=== PATIENT | female | born 1945 | race African-American/Black ===

== ENCOUNTER 2023-07-17 12:17 | Emergency (ER) | payer OTHER, SELFPAY ==
[2023-07-17 12:29] VITALS: BP 143/80; PULSE 76; RESP 20; TEMP 36.7; O2SAT 100; BMI 26.4
[2023-07-17 14:00] VITALS: BP 150/94; PULSE 69; RESP 18; O2SAT 99
[2023-07-17] MEDS: OXYCODONE HCL/ACETAMINOPHEN 5MG/325MG 1 TAB PO (14:09)
--- NOTE | 2023-07-17 17:52 | ED.UPPEXIN1 ---
HPI - Extremity Injury (Upper) General Chief Complaint: Extremity Injury, Upper Stated Complaint: RIGHT HAND PAIN Time Seen by Provider: 07/17/23 12:40 Source: patient Mode of arrival: walk-in Limitations: no limitations History of Present Illness HPI narrative: The patient is coming to the ER 2 weeks after she had an injury to her right hand when she had her right hand fingers stuck in the garage door where she broke her middle phalanx in both second third and fourth finger The patient at that time started antibiotic she was supposed to follow-up with orthopedic as outpatient but she did not do that yet she is coming after she noted swelling in her left index finger more than usual in addition to increasing pain although she is not taking anything other than Tylenol at home The patient take Eliquis Related Data Home Medications Medication Instructions Recorded Confirmed amlodipine 5 mg tablet 5 mg PO DAILY 07/17/23 07/17/23 apixaban 5 mg tablet (Eliquis) 5 mg PO DAILY 07/17/23 07/17/23 aspirin 81 mg tablet,delayed 81 mg PO DAILY 07/17/23 07/17/23 release (Adult Low Dose Aspirin) atorvastatin 40 mg tablet 40 mg PO DAILY 07/17/23 07/17/23 cephalexin 500 mg capsule 500 mg PO BID 07/17/23 07/17/23 hydrochlorothiazide 25 mg tablet 25 mg PO DAILY 07/17/23 07/17/23 lisinopril 40 mg tablet 40 mg PO DAILY 07/17/23 07/17/23 metformin 500 mg tablet,extended 1,000 mg PO BID 07/17/23 07/17/23 release 24 hr metoprolol succinate 50 mg 50 mg PO DAILY 07/17/23 07/17/23 tablet,extended release 24 hr Previous Rx's Medication Instructions Recorded oxycodone-acetaminophen 5 mg-325 1 tab PO Q8H PRN pain #9 tabs 07/17/23 mg tablet (Percocet) Allergies Allergy/AdvReac Type Severity Reaction Status Date / Time No Known Drug Allergies Allergy Verified 07/17/23 12:29 Review of Systems ROS Status of ROS 10 or more systems reviewed and unremarkable except as noted in history and below PFSH PFSH Social History Smoking status: Never smoker Exam Narrative Exam Narrative: Nurses notes and vital signs reviewed and patient is not hypoxic. General: Well-appearing and in no apparent distress. Skin: Warm, dry, no pallor noted. No rash. Head: Normocephalic, atraumatic. Neck: Supple, non-tender. Eye: Pupils are equal, round and EOMI. No scleral icterus. Ears, Nose, Mouth, and Throat: TM are clear, no nasal mucosal hypertrophy. Oral mucosa is moist, no posterior oropharynx erythema, uvula is mid-line Cardiovascular: Regular Rate and Rhythm without murmur, gallop or rub. Respiratory: No accessory muscle use or respiratory distress. Lungs are clear to auscultation, no wheezing, rales or rhonchi Chest Wall: no tenderness Back: No midline thoracic or lumbar vertebral tenderness. No CVA tenderness Musculoskeletal: The patient index finger examination showed that the tip of the finger just distal to the distal interphalangeal joint there is ischemia with tenderness the rest of the fingers are swollen the patient have the rest of the fingers showing healing properly with no tenderness no signs of infection GI: Abdomen is soft, non-distended. Normal bowel sounds. No masses appreciated. No tenderness to palpation. No rebound, guarding, or rigidity noted. Neurological: A&O x4. No cranial nerve dysfunction observed. No truncal ataxia. Moves all extremities. Sensation intact. Psychiatric: Cooperative and interactive. Normal mood and affect. Constitutional Vital Signs, click to edit/add: Last Vital Signs Temp 98.1 F 07/17/23 12:29 Pulse 69 07/17/23 14:00 Resp 18 07/17/23 14:00 BP 150/94 H 07/17/23 14:00 Pulse Ox 99 07/17/23 14:00 Course Vital Signs Vital signs: Vital Signs Temperature 98.1 F 07/17/23 12:29 Pulse Rate 76 07/17/23 12:29 Respiratory Rate 20 07/17/23 12:29 Blood Pressure 143/80 H 07/17/23 12:29 Pulse Oximetry 100 07/17/23 12:29 Temperature 98.1 F 07/17/23 12:29 Pulse Rate 69 07/17/23 14:00 Respiratory Rate 18 07/17/23 14:00 Blood Pressure 150/94 H 07/17/23 14:00 Pulse Oximetry 99 07/17/23 14:00 MDM - Extremity Injury (Upper) MDM Narrative Medical decision making narrative: The patient will be covered with Percocet for pain management but her presentation was discussed with Dr. Wood and orthopedic service as it is concerning for possible ischemic changes The patient will follow up with the process laboratory specialist as outpatient Splint reapplied and the patient was instructed about the importance of follow-up because of the ischemic changes and the risk of losing the whole finger but right now the process has been going on for at least 2 weeks The patient is to follow up with primary care physician in next 2-3 days or to return to the emergency department should any of the signs or symptoms worsen or new symptoms develop. The patient agrees with the following Diagnosis and Treatment plan and the patient will be discharged home. Discharge Plan Discharge Chief Complaint: Extremity Injury, Upper Clinical Impression: Ischemia of finger Patient Disposition: Home, Self-Care Time of Disposition Decision: 13:55 Prescriptions / Home Meds: New oxycodone-acetaminophen [Percocet] 5-325 mg tablet 1 tab PO Q8H PRN (Reason: pain) Qty: 9 0RF No Action amlodipine 5 mg tablet 5 mg PO DAILY Eliquis 5 mg tablet 5 mg PO DAILY atorvastatin 40 mg tablet 40 mg PO DAILY cephalexin 500 mg capsule 500 mg PO BID hydrochlorothiazide 25 mg tablet 25 mg PO DAILY lisinopril 40 mg tablet 40 mg PO DAILY metformin 500 mg tablet extended release 24 hr 1,000 mg PO BID metoprolol succinate 50 mg tablet extended release 24 hr 50 mg PO DAILY aspirin [Adult Low Dose Aspirin] 81 mg tablet,delayed release (DR/EC) 81 mg PO DAILY Instructions: Crush Injury (ED) Stand Alone Forms: Portal Instructions Referrals: SURENDRA GODINEZ [Primary Care Provider] - 1 week Munir Kumar MD [Physician] - As soon as possible Discharge Date/Time: 07/17/23 14:14
== END 2023-07-17 14:14 | disposition home or self-care (01) ==
PROVIDERS: Emergency Provider Emergency Medicine; Family Provider Family Medicine; PCP Family Medicine
DX: I99.8 Other disorder of circulatory system (principal); Z79.899 Other long term (current) drug therapy; Z79.01 Long term (current) use of anticoagulants; Z79.84 Long term (current) use of oral hypoglycemic drugs
CPT/HCPCS: 99283

== ENCOUNTER 2023-07-18 09:43 | Outpatient (OUT) | payer OTHER, SELFPAY ==
--- NOTE | 2023-07-18 09:59 | XR_ITS ---
The [address] [address] Patient Name: NEIL TORIBIO MRN: [id number] date: 1945 Sex: F Assigned Patient Location: [facility] Current Patient Location: Accession/Order Number: [id number] Exam Date: 07/18/2023 10:05 Report Date: 07/19/2023 07:19 At the request of: GAGE ISSA Procedure: XR hand RT min 3V EXAM: XR hand RT min 3V HISTORY: Right Hand Pain COMPARISON: None. TECHNIQUE: Routine views of the XR hand RT min 3V FINDINGS/ XR/XR hand RT min 3V IMPRESSION: 1. Displaced first distal phalangeal fracture with irregular fracture margins and adjacent soft tissue gas for which superimposed osteomyelitis cannot be excluded. The soft tissues of the second distal phalanx appear blunted. Acro osteolysis of the third distal phalanx. Normal mineralization. 2. Atherosclerotic calcifications are present. 3. Advanced first CMC, moderate first MCP/IP and scattered moderate interphalange joint degeneration. Electronically authenticated by: SUNITHA SRINIVASAN Date: 07/19/2023 07:19
== END 2023-07-18 09:44 | disposition home or self-care (01) ==
LOC: RAD 09:44
PROVIDERS: Family Provider Family Medicine; PCP Family Medicine; Visit Provider Orthopaedic Surgery
DX: M79.641 Pain in right hand (principal)
CPT/HCPCS: 73130

== ENCOUNTER 2023-08-01 09:57 | Outpatient (OUT) | payer OTHER, SELFPAY ==
--- NOTE | 2023-08-01 09:59 | XR_ITS ---
The [address] [address] Patient Name: NEIL TORIBIO MRN: [id number] date: 1945 Sex: F Assigned Patient Location: [facility] Current Patient Location: Accession/Order Number: [id number] Exam Date: 08/01/2023 10:18 Report Date: 08/02/2023 00:28 At the request of: GAGE ISSA Procedure: XR hand RT min 3V PROCEDURE: XR hand RT min 3V HISTORY: Closed Fracture Of Distal Phalanx Right Finger S62.662A ; follow-up finger fractures COMPARISON: XR hand right 07/18/2023 FINDINGS: BONES:Stable alignment of distal phalanx fractures. Suspect early bone resorption involving the second digit distal phalanx. SOFT TISSUES:Soft tissue irregularity, possible partial amputation of tip of second digit. No radiopaque foreign body or subcutaneous air. EFFUSION:None visible. OTHER: Negative. XR/XR hand RT min 3V IMPRESSION: 1. Images were obtained to cast material which slightly limits evaluation. 2. Stable alignments and likely changes of early bone healing involving distal phalanx fractures. Electronically authenticated by: GAGE GARG Date: 08/02/2023 00:28
== END 2023-08-01 09:58 | disposition home or self-care (01) ==
LOC: RAD 09:57
PROVIDERS: Family Provider Family Medicine; PCP Family Medicine; Visit Provider Orthopaedic Surgery
DX: S62.662A Nondisplaced fracture of distal phalanx of right middle finger, initial encounter for closed fracture (principal); S62.660A Nondisplaced fracture of distal phalanx of right index finger, initial encounter for closed fracture
CPT/HCPCS: 73130

== ENCOUNTER 2023-09-12 08:52 | Outpatient (OUT) | payer OTHER, SELFPAY ==
--- NOTE | 2023-09-12 | XR_ITS ---
The [address] [address] Patient Name: NEIL TORIBIO MRN: [id number] date: 1945 Sex: F Assigned Patient Location: [facility] Current Patient Location: Accession/Order Number: [id number] Exam Date: 09/12/2023 09:08 Report Date: 09/13/2023 06:49 At the request of: GAGE ISSA Procedure: XR hand RT min 3V PROCEDURE: XR hand RT min 3V HISTORY: S62.630D displaced fracture ; follow-up distal third phalanx fracture; pain and swelling COMPARISON: XR and right 08/01/2023, 07/18/2023 FINDINGS: BONES:Amputation of distal tip of second digit with bone resorption and remodeling at tip. Distal margin of the tuft of the third digit distal phalanx with absence and likely represents bone resorption at site of prior injury. No periosteal reaction or findings to suggest bone destruction. SOFT TISSUES:Soft tissue irregularity and mild swelling involving distal end of second digit. No free air or radiopaque foreign body. EFFUSION:None visible. OTHER: Negative. XR/XR hand RT min 3V IMPRESSION: 1. Ongoing bone and soft tissue healing of second and third digits; improved compared to prior 2 studies. Electronically authenticated by: GAGE GARG Date: 09/13/2023 06:49
== END 2023-09-12 08:53 | disposition home or self-care (01) ==
LOC: RAD 08:52
PROVIDERS: Family Provider Family Medicine; PCP Family Medicine; Visit Provider Orthopaedic Surgery
DX: S62.630D Displaced fracture of distal phalanx of right index finger, subsequent encounter for fracture with routine healing (principal); S62.632D Displaced fracture of distal phalanx of right middle finger, subsequent encounter for fracture with routine healing
CPT/HCPCS: 73130

== ENCOUNTER 2023-10-24 09:21 | Outpatient (OUT) | payer OTHER, SELFPAY ==
--- NOTE | 2023-10-24 | XR_ITS ---
The [address] [address] Patient Name: NEIL TORIBIO MRN: [id number] date: 1945 Sex: F Assigned Patient Location: [facility] Current Patient Location: [facility] Accession/Order Number: [id number] Exam Date: 10/24/2023 09:30 Report Date: 10/24/2023 09:51 At the request of: GAGE ISSA Procedure: XR hand RT min 3V EXAM: XR hand RT min 3V HISTORY: RIGHT HAND PAIN COMPARISON: Study was compared to the prior one dated 09/12/2023 and 08/01/2023 and 07/18/2023 There is status post amputation of the distal phalanx of the second digit with mild improvement in the soft tissue swelling. Mild adjacent soft tissue calcification is again noted. There is interval partial resorption of the distal phalanx of the third digit of the right hand likely due to trauma. Adjacent soft tissue swelling along the distal third digit is noted. There is no acute fracture or dislocation. The interarticular joint spaces are preserved. No other significant soft tissue abnormality is noted. XR/XR hand RT min 3V IMPRESSION: Mild interval acrolysis of the distal phalanx of the third digit with adjacent soft tissue swelling likely due to prior trauma. No significant interval change in the appearance of the distal phalanx of the second digit. Electronically authenticated by: ANNA COHN Date: 10/24/2023 09:51
--- OUTSIDE RECORDS SUMMARY | 2023-10-24 09:25 | XMS_ITS | CCD ---
Author Name Unknown Address [address] [place] [address] Organization [facility] Care Team Providers Care Talent Scout Name Role Phone Nalini Le Unavailable DO Lev Chávez Primary Care Provider DO Lev Chávez Attending Provider [phone] DO Lev Chávez Primary Care Provider Munir Kumar Attending Provider [phone] Munir Kumar Admitting Unavailable Munir Kumar Attending Unavailable Lev Chávez Primary Care Unavailable Lev Chávez Admitting Unavailable Lev Chávez Primary Care Unavailable Lev Chávez Attending Unavailable Medications Current Medications Medication Drug Class(es) Dates Sig (Normalized) Sig (Original) acetaminophen 325 mg oral tablet (5 sources) Start: 11-20-2018 take 325 mg by mouth every four hours Acetaminophen Active 325 MG PO Q4H 100 November 20, 2018 12:00am Start: 11-20-2018 take 650 mg by mouth every four hours Acetaminophen Active 650 MG PO Q4H 0 November 20, 2018 12:00am apixaban 5 mg oral tablet (3 sources) Factor Xa Inhibitor Start: 11-20-2018 take 1 tablet by mouth twice daily Apixaban (Eliquis) 5 mg Tablet Active 5 MG PO Twice daily November 20, 2018 12:00am aspirin 81 mg delayed release oral tablet (5 sources) Platelet Aggregation Inhibitor, Nonsteroidal Anti-inflammatory Drug Start: 11-04-2018 End: 11-20-2018 take 81 mg by mouth once daily Aspirin Active 81 MG PO Daily November 20, 2018 12:00am take 1 tablet by paolo th every twenty-four hours Aspirin 81 MG 1 tablet Orally Once a day for 30 day(s) Active atorvastatin 40 mg oral tablet (5 sources) HMG-CoA Reductase Inhibitor Start: 11-04-2018 End: 11-20-2018 take 40 mg by mouth once daily in the evening Atorvastatin Active 40 MG PO Every evening November 20, 2018 12:00am docusate sodium 100 mg oral capsule (3 sources) Start: 11-20-2018 take 100 mg by mouth three times daily Docusate Sodium Active 100 MG PO Three times daily November 20, 2018 12:00am take 1 capsule by [facility] every twenty-four hours Docusate Sodium 100 MG 1 capsule as needed Orally Once a day for 30 day(s) Active 3 ml insulin aspart, human 100 unt/ml pen injector (3 sources) Insulin Analog Start: 11-20-2018 Insulin Aspart U-100 (Novolog Flexpen U-100 Insulin) 100 unit/mL Insulin Pen Active 0 UNITS SUBCUT 3X/Day with meals and bedtime November 20, 2018 12:00am NovoLOG FlexPen 100 UNIT/ML as directed Subcutaneous Active lisinopril 40 mg oral tablet (5 sources) Angiotensin Converting Enzyme Inhibitor Start: 11-20-2018 take 40 mg by mouth once daily Lisinopril Active 40 MG PO Daily November 20, 2018 12:00am Start: 11-04-2018 End: 11-20-2018 take 10 mg by mouth once daily Lisinopril Discontinued 10 MG PO Daily November 04, 2018 12:00am November 20, 2018 8:22am meclizine hydrochloride 25 mg oral tablet (5 sources) Antiemetic Start: 11-20-2018 take 25 mg by mouth twice daily Meclizine Active 25 MG PO Twice daily November 20, 2018 12:00am Start: 11-01-2018 End: 11-20-2018 take 1 tablet by mouth once daily Meclizine Discontinued 1 TAB PO Daily November 01, 2018 12:00am November 20, 2018 8:22am take [address] [facility] every twenty-four hours Meclizine HCl 25 MG 1 tablet as needed Orally Once a day for 30 day(s) Active metFORMIN hydrochloride 500 mg oral tablet (5 sources) Biguanide Start: 11-20-2018 take 1000 mg by mouth twice daily at mealtime Metformin Active 1000 MG PO Twice daily with meals November 20, 2018 12:00am Start: 11-01-2018 End: 11-20-2018 take 2 tablets by mouth twice daily Metformin Discontinued 2 TAB PO Twice daily November 01, 2018 12:00am November 20, 2018 8:22am take 1 tablet by paolo th every twenty-four hours metFORMIN HCl ER 500 MG 1 tablet with evening meal Orally Once a day for 30 day(s) Active 24 hr metoprolol succinate 50 mg extended release oral tablet (5 sources) beta-Adrenergic La Start: 11-01-2018 End: 11-20-2018 take 50 mg by mouth once daily Metoprolol Succinate Active 50 MG PO Daily November 20, 2018 12:00am take 1 capsule by mouth once alyssia ly Metoprolol Succinate 50 MG 1 capsule Orally Once a day for 30 day(s) Active ondansetron 4 mg disintegrating oral tablet (2 sources) Serotonin-3 Receptor Antagonist Start: 11-20-2018 take 4 mg by mouth every four hours Ondansetron Active 4 MG PO Every 4 hours November 20, 2018 12:00am vitamin b12 1 mg oral capsule (2 sources) Vitamin B12 Start: 11-20-2018 take 1000 ug by mouth once Cyanocobalamin (Vitamin B-12) Active 1000 MCG PO Once November 20, 2018 12:00am Completed/Discontinued Medications Medication Drug Class(es) Dates Sig (Normalized) Sig (Original) hydroCHLOROthiazide 25 mg oral tablet (2 sources) Thiazide Diuretic Start: 9 End: 9 take 1 tablet by mouth once daily Hydrochlorothiazide Discontinued 1 TAB PO Daily November 01, 2018 12:00am November 04, 2018 2:03pm metoclopramide 10 mg oral tablet (2 sources) Dopamine-2 Receptor Antagonist Start: 9 End: 9 take 1 tablet by mouth every six hours Metoclopramide Hcl (Reglan) 10 mg tablet Discontinued 10 MG PO Q6H November 04, 2018 12:00am November 20, 2018 8:22am rivaroxaban 20 mg oral tablet (4 sources) Factor Xa Inhibitor Start: 9 End: 9 take 1 tablet by mouth once daily at dinner Rivaroxaban (Xarelto) 20 mg tablet Discontinued 20 MG PO Daily November 25, 2018 2:08pm November 20, 2018 8:21am must administer with evening meal. Start on 11/25/2018 Start: 11-25-2018 End: 11-20-2018 take 1 tablet by mouth once daily at dinner Rivaroxaban (Xarelto) 20 mg tablet Discontinued 20 MG PO Daily November 25, 2018 3:08pm November 20, 2018 9:21am must administer with evening meal. Start on 11/25/2018 Start: 11-04-2018 End: 11-20-2018 Rivaroxaban (Xarelto) 15 mg Tablet Discontinued 15 MG PO Twice daily November 04, 2018 12:00am November 20, 2018 8:21am on 11/25/2018 start taking 20 mg once daily Problems Active Problems Problem Classification Problem Date Documented Date Episodic/Chronic Acute and unspecified renal failure (2 sources) Injury of kidney; Translations: [Acute kidney failure, unspecified] 11-14-2018 Episodic Acute cerebrovascular disease (3 sources) Cerebrovascular accident; Translations: [Cerebral infarction, unspecified] 11-09-2018 Chronic Administrative/social admission (2 sources) Other reduced mobility; Translations: [Impaired mobility and activities of daily living] 11-09-2018 Episodic Blindness and vision defects (2 sources) Diplopia; Translations: [Diplopia] 11-09-2018 Episodic Diabetes mellitus without complication (2 sources) Diabetes mellitus; Translations: [Type 2 diabetes mellitus without complications] 11-09-2018 Chronic Disorders of lipid metabolism (2 sources) Hyperlipidemia; Translations: [Hyperlipidemia, unspecified] 11-09-2018 Chronic Essential hypertension (2 sources) Hypertensive disorder; Translations: [Essential (primary) hypertension] 11-09-2018 Chronic Genitourinary symptoms and ill-defined conditions (2 sources) Mychal hematuria; Translations: [Gross hematuria] 11-14-2018 Episodic Nausea and vomiting (4 sources) Nausea and vomiting; Translations: [Nausea with vomiting, unspecified] 11-14-2018 Episodic Other nervous system disorders (2 sources) Single limb ataxia; Translations: [Ataxia, unspecified] 11-09-2018 Episodic Other nervous system disorders (2 sources) Coordination problem; Translations: [Other lack of coordination] 11-09-2018 Episodic Pulmonary heart disease (2 sources) Pulmonary embolism; Translations: [Other pulmonary embolism without acute cor pulmonale] 11-09-2018 Episodic Residual codes; unclassified (2 sources) Patient encounter status; Translations: [Encounter for prophylactic measures, unspecified] 11-09-2018 Episodic Unclassified (1 source) Displaced fracture of distal phalanx of right middle finger, initial encounter for open fracture; Translations: [Displaced fracture of distal phalanx of right middle finger, initial encounter for open fracture] Onset: 09-26-2023 Past or Other Problems Problem Classification Problem Date Documented Da te Episodic/Chronic Immunizations and screening for infectious disease (1 source) Encounter for immunization Onset: 01-29-2022 Resolved: 01-29-2022 Episodic Malaise and fatigue (1 source) Asthenia; Translations: [Weakness] Onset: 02-03-2023 Episodic Results Test Name Value Interpretation Reference Range Facil ity MRI Brain w/o + w/on 022 MRI Brain w/o + w/ HISTORY: Asymmetric sensorineural hearing loss. Tinnitus. COMPARISON: None available TECHNIQUE: Multiplanar multisequence MRI of the brain was performed without and with contrast including thin slice pre and postcontrast sequences through the internal auditory canal. FINDINGS: Prominence of the sulci and ventricles compatible with mild generalized parenchymal volume loss. Foci of hyperintense T2/FLAIR signal within the bilateral supratentorial white matter are nonspecific but most likely due to chronic small vessel ischemic changes in a patient of this age. Left cerebellar hemisphere encephalomalacia with gliosis No acute hemorrhage, enhancing mass or pathologic enhancement, mass-effect, midline shift, or abnormal extra-axial fluid collection. Midline structures are within normal limits. No diffusion restriction. No suspicious susceptibility artifact identified on gradient echo sequence. The major intracranial vascular flow voids appear maintained. Normal signal and morphology of cranial nerve VII/VIII complexes. No pathologic enhancement of cranial nerve VII/VIII complexes. No cerebellopontine angle or internal auditory canal mass. Normal signal and morphology of the cochlea, vestibule, and semicircular canals. The visualized paranasal sinuses and bilateral mastoid are cells are clear. IMPRESSION: No acute intracranial process. Generalized parenchymal volume loss and nonspecific white matter findings most compatible with chronic small vessel ischemic changes in a patient of this age. Normal appearance of the bilateral cranial nerve VII/VIII complexes. No cerebellopontine angle or internal auditory canal mass. Report reported and signed by Justin Castro on 02/05/2022 0956 Normal [facility] Industrial Paramedic Encounters Encounter Date Encounter Type Care Provider Facility Start: 09-26-2023 End: 09-26-2023 ambulatory DO Lev Chávez Work Phone: [facility] Work Phone: Start: 09-26-2023 End: 09-26-2023 Discharged Recurring DO Lev Chávez Work Phone: [facility]-[employer] [address] Start: 02-03-2023 End: 02-03-2023 ambulatory DO Lev Chávez Work Phone: [facility] Work Phone: Start: 02-03-2023 End: 02-03-2023 Discharged Recurring DO Lev Chávez Work Phone: [facility]-Physical Therapy [place] Start: 01-29-2022 ([facility] C Vac) [facility] Co vid Vaccine Nalini Fitt [facility] Start: 01-29-2022 End: 01-29-2022 ambulatory Nalini Fitt Other [facility] Other Immunizations Immunization Date Immunization Notes Care Provider Fa maria del carmen 01-29-2022 COVID-19 Moderna Nalini Fitt Other [facility] Other 01-17-2019 tetanus toxoid, reduced diphtheria toxoid, and acellular pertussis vaccine, adsorbed Nalini Fitt Other [facility] Other Payers Date Payer Category Payer Medicare [id number] 2022 Self-pay [id number] Medicaid Medicaid [id number] Medicare [id number]. [id number] Medicare [employer] MCR PF [id number] Unknown HCAP/HFA/FAP Active [id number] Unknown HCAP/HFA/FAP Active [id number] Unknown [id number] Unknown [id number] Social History Date Type Detail Facility Unknown if ever smoked [facility] Other Sex Assigned At Sex Assigned At Bir th [facility] Other Start: 11-14-2018 End: 11-14-2018 Tobacco smoking status NHIS Never smoked tobacco (finding) [facility] Start: 1945 Sex Assigned At Female F [facility] Evaluation note 01-29-2022 Note Date & Type Note Facility 01-29-2022 Evaluation note Encounter Date Diagnosis Assessment Notes Jan, Encounter for immunization (ICD-10 - Z23) Patient presents for COVID-19 vaccination BOOSTER. Pre-screening form answers evaluated with patient. Patient denies current illness or allergic reaction to component of COVID-19 vaccine. Patient provided with current copy of EUA. [facility] Other Evaluation note Note Date & Type Note Facility Evaluation note No assessment information availa ble [facility] Work Phone: History general Narrative - Reported Note Date & Type Note Facility History general Narrative - Reported Type Medical History CVA Medical History diplopia-resolved Medical History PE-LUNGS Medical History HTN Medical History diabetes mellitus Surgical History Hospitalization History above Hospitalization History stroke Hospitalization History PE [facility] Other Summary Purpose Family History No Family History Records FoundNo Family History Records Found Advance Directives No Advanced Directives Records Found Advance Directive Response Recorded Date/ Time Advance Directives No September 20, 2017 9:09am Advance Directive Response Recorded Date/ Time Advance Directives No September 20, 2017 8:09am Chief Complaint and Reason for Visit Chief Complaint Weakness Chief Complaint R middle finger/R he nd Additional Source Comments INFORMATION SOURCE (unrecogn ized section and content) DATE CREATED AUTHOR 02/07/2022 [facility] Me dical Specialist DATE CREATED AUTHOR AUTHOR'S ORGANDEMETRIS ATION 10/04/2023 [facility] REASON FOR VISIT (unrecogniz ed section and content) MODERNA VACCINE BOOSTER-2 Care Teams (unrecognized sec tion and content) Team Status: Active Member Role Status Dates Lev Chávez , DO Primary Care Provider Active Team Status: Inactive Member Role Status Dates Lev Chávez , Primary Care Provider, Attending Ritesh fuentes Active Team Status: Inactive Member Role Status Dates Lev Chávez , Primary Care Provider Active Munir Kumar Attending Provider Active Goals (unrecognized section and content) Goals may be documented in a n alternate section FOR RECORDS PERTAINING TO PATIENTS WHO ARE OR HAVE BEEN ENROLLED IN A CHEMICAL DEPENDENCY/SUBSTANCEABUSE PROGRAM, SOME INFORMATION MAY BE OMITTED. This clinical summary was aggregated from multiple sources. Caution should be exercised in using it in the provision of clinical care. This summary normalizes information from multiple sources, and as a consequence, information in this document may materially change the coding, format and clinical context of patient data. In addition, data may be omitted in some cases. CLINICAL DECISIONS SHOULD BE BASED ON THE PRIMARY CLINICAL RECORDS. [employer] provides no warranty or guarantee of the accuracy or completeness of information in this document.
== END 2023-10-24 09:22 | disposition home or self-care (01) ==
LOC: RAD 09:21
PROVIDERS: Family Provider Family Medicine; PCP Family Medicine; Visit Provider Orthopaedic Surgery
DX: S62.630D Displaced fracture of distal phalanx of right index finger, subsequent encounter for fracture with routine healing (principal); S62.632D Displaced fracture of distal phalanx of right middle finger, subsequent encounter for fracture with routine healing
CPT/HCPCS: 73130